=== PATIENT | male | born 1970 | race Caucasian/White ===

== ENCOUNTER 2019-06-05 23:09 | Emergency (ER) | payer OTHER, MEDICAID ==
[~2019-06-05] VITALS: Ht 172.7 cm; Wt 77.1 kg
[2019-06-05 23:15] VITALS: BP_SYST 114
--- NOTE | 2019-06-05 23:15 | NUR ---
Patient triaged and placed in waiting room. VSS and patient appears in no acute distress at this time. Accompanied by FAMILY, awaiting available bed, and MD notified of need for MSE.
[2019-06-05] MEDS ORDERED: NACL 0.9% 1,000 ML IV ONE (23:45)
--- NOTE | 2019-06-06 | NUR ---
PT TAKEN TO LAB FOR BLOOD DRAW.
[2019-06-06 00:05] LABS: BASOPHILS % (AUTO) 0.5 % (0.0-2.0); EOSINOPHILS # (AUTO) 0.1 K/uL (0.0-0.4); EOSINOPHILS % (AUTO) 1.7 % (0.0-4.0); HEMATOCRIT 38.2 % (36-54); HEMOGLOBIN 13.3 g/dL (14.0-18.0); LYMPHOCYTES # (AUTO) 3.1 K/uL (1.0-5.5); LYMPHOCYTES % (AUTO) 39.3 % (20.5-51.5); MEAN CORPUSCULAR HEMOGLOBIN 33 pg (27-31); MEAN CORPUSCULAR HGB CONC 35 % (32-36); MEAN CORPUSCULAR VOLUME 96 fL (79.0-98.0); MONOCYTES # (AUTO) 0.7 K/uL (0.0-1.0); MONOCYTES % (AUTO) 8.8 % (1.7-9.3); NEUTROPHILS % (AUTO) 49.7 % (40.0-70.0); PLATELET COUNT (AUTO) 211 K/uL (130-430); RED CELL DISTRIBUTION WIDTH 13.3 % (9.0-15.0)
--- NOTE | 2019-06-06 00:09 | NUR ---
Placed in room 3 . Placed on cytometry technologist, blood pressure machine and pulse oximeter. To gown for exam. Side rails up. Report given to KAVON LEMONS.
--- NOTE | 2019-06-06 00:09 | NUR ---
Pt c/o BLE pain from neuropathy. Pt states that he was recently released from custody. Pt [address], denies c/o C/P or SOB. Pt states that his heart rate is always high and the doctors are uncertain why. Pt denies taking medication for tachycardia.
[2019-06-06 00:20] LABS: CALCIUM 8.8 mg/dL (8.4-11.0); CREATININE 0.9 mg/dL (0.55-1.30); POTASSIUM 4.4 mmol/L (3.5-5.1)
[2019-06-06] MEDS ORDERED: MORPHINE 4 MG/ML INJ. SYRINGE IVP ONE (00:45)
--- NOTE | 2019-06-06 00:45 | NUR ---
Dr. Israel at bedside.
[2019-06-06] MEDS ORDERED: fentaNYL CITRATE/PF 100 MCG/2 ML AMP IM ONE (01:15)
[2019-06-06] MEDS ORDERED: NACL 0.9% 1,000 ML IV ONE (01:45)
[2019-06-06 02:00] VITALS: BP_SYST 135
--- NOTE | 2019-06-06 02:00 | NUR ---
Patient given written and verbal discharge instructions and verbalizes understanding. ER MD discussed with patient the results and treatment provided. Patient in stable condition. ID arm band removed. IV catheter removed intact and dressing applied, no active bleeding. Rx of [place] given. Patient educated on pain management and to follow up with PMD. Pain Scale 3/10. Opportunity for questions provided and answered. Medication side effect fact sheet provided.
== END 2019-06-06 02:00 | disposition home or self-care (01) ==
LOC: SED 23:09
DX: M79.2 Neuralgia and neuritis, unspecified (principal); E11.9 Type 2 diabetes mellitus without complications; I10 Essential (primary) hypertension
CPT/HCPCS: 36415; 80048; 85025; 96372; 96374; 99283; J2270; J3010; J7030 ×2

== ENCOUNTER 2021-10-14 01:43 | Emergency (ER) | payer OTHER, MEDICAID ==
[~2021-10-14] VITALS: Ht 172.7 cm; Wt 77.1 kg
[2021-10-14 02:55] VITALS: BP_SYST 156
--- NOTE | 2021-10-14 04:02 | NUR ---
RAI Cheatham examining patient.
--- NOTE | 2021-10-14 04:09 | NUR ---
Patient to [facility] Chair to gown for evaluation. Side rails up.
--- NOTE | 2021-10-14 04:10 | NUR ---
Dr. Dumont chair side for pt shaqal
[2021-10-14] MEDS ORDERED: HYDROcodone/ACETAMIN 10-325 MG TAB PO ONE ×2 (04:15→04:45)
--- NOTE | 2021-10-14 04:15 | NUR ---
Pt BIB family to ED C/O that he stepped on broken glass, L foot Lac. VSS no s/s of acute distress Resting on ED Chair
[2021-10-14] MEDS ORDERED: HYDROcodone/ACETAMIN 10-325 MG TAB ONE (04:22)
[2021-10-14] MEDS ORDERED: NACL 0.9% 1,000 ML IV ONE (04:30)
[2021-10-14] MEDS ORDERED: INSULIN REGULAR, HUMAN 10 UNITS/0.1 ML INJ IVP ONE (04:30)
--- NOTE | 2021-10-14 04:40 | NUR ---
Dr. Dumont verbal ordered to not give duplicate PO [place]
[2021-10-14 05:18] VITALS: BP_SYST 156
--- NOTE | 2021-10-14 05:18 | NUR ---
Patient given written and verbal discharge instructions and verbalizes understanding. ER MD discussed with patient the results and treatment provided. Patient in stable condition. ID arm band removed. Rx of [place] given. Patient educated on pain management and to follow up with PMD. Pain Scale 0/10 Opportunity for questions provided and answered. Medication side effect fact sheet provided.
== END 2021-10-14 05:18 | disposition home or self-care (01) ==
LOC: SED 01:43
DX: S91.112A Laceration without foreign body of left great toe without damage to nail, initial encounter (principal); I11.0 Hypertensive heart disease with heart failure; I50.9 Heart failure, unspecified; E11.9 Type 2 diabetes mellitus without complications; F17.290 Nicotine dependence, other tobacco product, uncomplicated; W25.XXXA Contact with sharp glass, initial encounter; Y93.89 Activity, other specified; Y92.89 Other specified places as the place of occurrence of the external cause; Y99.8 Other external cause status
CPT/HCPCS: 82962; 99283